=== PATIENT | male | born 1950 | race Caucasian/White ===

== ENCOUNTER 2023-09-23 12:12 | Emergency (ER) | payer MEDICARE, BC ==
[~2023-09-23] VITALS: Ht 177.8 cm; Wt 68.2 kg
[2023-09-23 12:17] VITALS: TEMP 97.7
[2023-09-23] MEDS ORDERED: AMOXICILLIN 8751 TAB PO (13:41)
[2023-09-23 14:23] VITALS: BP 162/88; PULSE 64
== END 2023-09-23 14:25 | disposition home or self-care (01) ==
LOC: COL.ER 12:12
DX: S01.25XA Open bite of nose, initial encounter (principal); W54.0XXA Bitten by dog, initial encounter